=== PATIENT | male | born 1970 | race Hispanic/Latino ===

== ENCOUNTER → 2025-01-17 | Outpatient (CLI) | payer OTHER ==
--- NOTE | 2025-01-17 14:10 | HMCIMG ---
CT HEART SAVER PROMOTIONAL HISTORY: Cardiac calcification scoring. FINDINGS: The cardiac calcification scoring is 0.7. RCA = 0.7 Limited examination of the heart was performed. The study is done for additional or incidental findings. IMPRESSION: No additional findings.
== END | disposition home or self-care (01) ==
LOC: RAH 13:05
PROVIDERS: ATTEND Internal Medicine
DX: Z13.6 Encounter for screening for cardiovascular disorders (principal); E78.2 Mixed hyperlipidemia; Z82.49 Family history of ischemic heart disease and other diseases of the circulatory system
CPT/HCPCS: 75571